=== PATIENT | female | born 1990 | race Caucasian/White ===

== ENCOUNTER 2018-01-31 15:20 | Emergency (ER) | payer OTHER ==
[~2018-01-31] VITALS: Ht 172.7 cm; Wt 68.9 kg
[~2018-01-31 15:20] MED LIST: FERROUS SULFAT325 MG PO; FLAGYL500 MG PO; IBUPROFEN800 MG PO; MOTRIN600 MG PO; NOHOMEMEDS; PERCOCET 5/31 TABLET PO; PRENATAL TABLE1 EACH PO; TYLENOL REGULA325 MG PO; TYLENOL WITH C1 EACH PO; ZOFRAN ODT4 MG PO; ZOVIRAX800 M1 PO; ~No Medications
[2018-01-31 15:59] VITALS: BP 122/74
== END 2018-01-31 17:13 | disposition left against medical advice (07) ==
LOC: EME 15:20
DX: R51 Headache (principal); R10.9 Unspecified abdominal pain; R11.0 Nausea; Z53.21 Procedure and treatment not carried out due to patient leaving prior to being seen by health care provider
CPT/HCPCS: 80053; 81003; 84702; 85027